=== PATIENT | female | born 1955 | race Caucasian/White ===

== ENCOUNTER 2017-04-01 12:42 | Day surgery (SDC) | payer BC ==
[~2017-04-01 12:42] MED LIST: ACETAMIN325 MG PO; ASPIRIN 81 LOW81 MG PO; CYCLOBENZAPR10 MG PO; GLUCOPHAGE500 MG PO; LIPITOR20 MG PO; LORATADINE10 M1 PO; METFORMIN500 M1 PO; NITROGLYCER0.4 MG SL; OMEPRAZOLE20 M1 PO; PROPRANOLOL80 M1 PO; ZESTRIL/PRIN5 MG/TA1 PO
[2017-04-01 16:59] VITALS: BP 148/82
== END 2017-04-01 16:45 | disposition home or self-care (01) | DRG 392 ==
LOC: ENDO 12:42
PROVIDERS: ATTEND Internal Medicine Gastroenterology
PROC: 0DJD8ZZ Inspection of Lower Intestinal Tract, Via Natural or Artificial Opening Endoscopic (ICD-10-PCS; principal; 2017-04-01)
DX: K59.00 Constipation, unspecified (principal); R13.10 Dysphagia, unspecified; I10 Essential (primary) hypertension; K64.4 Residual hemorrhoidal skin tags; K57.30 Diverticulosis of large intestine without perforation or abscess without bleeding; K64.8 Other hemorrhoids; K21.9 Gastro-esophageal reflux disease without esophagitis; E11.9 Type 2 diabetes mellitus without complications

== ENCOUNTER 2023-01-11 15:58 | Emergency (ER) | payer MEDICARE ==
[~2023-01-11] VITALS: Ht 149.9 cm; Wt 77.0 kg
[2023-01-11] VITALS (13 sets, daily range): BP systolic 131–179; BP diastolic 68–92
[2023-01-11 16:42] LABS: BASO% 0.1 % (0-3); EOS% 1.2 % (0-8); HEMATOCRIT 45.4 % (37.0-47.0); HEMOGLOBIN 14.7 g/dl (12.0-16.0); IMMATURE GRANULOCYTES 0.3 % (0.0-5.0); LYMPH% 47.5 % (15-41); MEAN CELL VOLUME 85.8 fL CALC (80.0-100.0); MEAN CORPUSCULAR HGB 27.8 pG CALC (26.0-32.0); MEAN CORPUSCULAR HGB CONC 32.4 g/dL CAL (32.0-36.0); MONO% 7.3 % (2-13); NEUT# 3.27 thou/uL (2.00-7.15); NEUT% 43.6 % (42-76); RED BLOOD COUNT 5.29 mill/uL (4.20-5.60); RED CELL DISTRI WIDTH 12.5 % (11.5-15.5)
[2023-01-11 16:55] LABS: ALBUMIN 4.6 g/dL (3.2-5.0); ALKALINE PHOSPHATASE 101 u/l (38-126); CARBON DIOXIDE 22 mmol/l (22-30); CHLORIDE 99 mmol/l (95-108); POTASSIUM 3.7 mmol/l (3.5-5.1); SGOT/AST 46 u/l (9-36); TOTAL PROTEIN 7.6 g/dL (6.3-8.2)
[2023-01-11 16:59] LABS: ANION GAP 17 (6-22 (CALC)); BILIRUBIN, TOTAL 0.8 mg/dL (0.02-1.3); BUN 12 mg/dL (8-23); BUN/CREATININE RATIO 22 (12-20 (CALC)); CREATININE 0.6 mg/dL (0.5-1.0); GFR FOR AFR.AMER. > 60 ML/MIN (>=60 (CALC)); GFR OTHER RACES > 60 ML/MIN (>=60 (CALC)); SODIUM 134 mmol/l (137-146)
[2023-01-12 02:34] LABS: ANION GAP 15 (6-22 (CALC)); BUN 12 mg/dL (8-23); BUN/CREATININE RATIO 22 (12-20 (CALC)); CARBON DIOXIDE 19 mmol/l (22-30); CHLORIDE 105 mmol/l (95-108); CREATININE 0.5 mg/dL (0.5-1.0); GFR FOR AFR.AMER. > 60 ML/MIN (>=60 (CALC)); GFR OTHER RACES > 60 ML/MIN (>=60 (CALC)); POTASSIUM 4.2 mmol/l (3.5-5.1); SODIUM 135 mmol/l (137-146)
[2023-01-12] MEDS ORDERED: METFORMIN HCL500 M1 PO ×2 (03:17→03:18)
[2023-01-12] MEDS ORDERED: GLIPIZIDE5 M2 PO ×2 (03:17→03:18)
[2023-01-12] MEDS ORDERED: DIPHENHYDRAM50 M2 PO (03:24)
[2023-01-12] MEDS ORDERED: PEPCID20 MG PO (03:24)
[2023-01-12 03:26] VITALS: BP 141/79
== END 2023-01-12 03:44 | disposition home or self-care (01) ==
LOC: ED 15:58
PROVIDERS: Emergency Medicine; Family Medicine
DX: T78.2XXA Anaphylactic shock, unspecified, initial encounter (principal); E11.65 Type 2 diabetes mellitus with hyperglycemia; I10 Essential (primary) hypertension; T38.3X6A Underdosing of insulin and oral hypoglycemic [antidiabetic] drugs, initial encounter; Z91.128 Patient's intentional underdosing of medication regimen for other reason